=== PATIENT | female | born 1995 | race Caucasian/White ===

== ENCOUNTER 2018-11-19 23:54 | Inpatient (IN) | payer OTHER ==
[~2018-11-19] VITALS: Ht 160 cm; Wt 49.9 kg
[2018-11-19 23:58] VITALS: BP_SYST 126
--- NOTE | 2018-11-20 00:20 | NUR ---
Patient to ER bed 5 to gown for evaluation. Side rails up. Report given to SYD MADDOX.
--- NOTE | 2018-11-20 00:20 | NUR ---
Pt BIB friend s/p witnessed seizure while in passenger seat lasting approx. 2 minutes with a post ictal state lasting about 10 minutes. Pt presently AAOx4, no seizure activity, coherent speech in full sentences, no focal neurosensory or neuromuscular deficits noted. Pt also c/o H/A with neck pain ongoing for the past 2 days with a fever of 101 yesterday. +H/A, +Nausea, +photosensitivity. VSS, NAD. Addendum: 11/20/18 at 0610 by АЛЕКСАНДР Seizure pads placed to side rails.
--- NOTE | 2018-11-20 00:58 | NUR ---
Lab at bedside. Pt refuses blood draw. Dr. Mcmillan notified.
--- NOTE | 2018-11-20 01:02 | NUR ---
Dr. Mcmillan at bedside.
--- NOTE | 2018-11-20 01:25 | NUR ---
Pt moved to ER bed 08 for isolation r/t possible meningitis.
[2018-11-20] MEDS ORDERED: KETAMINE 30 MG/3 ML SYRINGE IVP ONE (01:30)
[2018-11-20] MEDS ORDERED: VANCOMYCIN HCL 1,000 MG in NS 250 ML IV ONE (01:30)
[2018-11-20] MEDS ORDERED: ACYCLOVIR IV 500 MG in D5W 100 ML IV ONE (01:30)
[2018-11-20] MEDS ORDERED: DIPHENHYDRAMINE INJ 50 MG/ML VIAL IVP ONE (01:30)
[2018-11-20] MEDS ORDERED: ONDANSETRON HCL 4 MG/2 ML VIAL IVP ONE (01:30)
--- NOTE | 2018-11-20 01:40 | NUR ---
# 22 gauge angiocath placed to LAC. Use of asceptic technique. Opsite placed over site. Blood return noted. Blood for lab drawn from site. Flushed with 10 cc of normal saline. No evidence of infiltration noted. Patient tolerated well.
--- NOTE | 2018-11-20 01:43 | NUR ---
Pt to CT via stretcher. Pt wearing face mask.
[2018-11-20] MEDS ORDERED: VANCOMYCIN HCL 1000 MG/VIAL IV ONE (01:50)
[2018-11-20] MEDS ORDERED: ACYCLOVIR SODIUM 50 MG/ML VIAL IV ONE (01:51)
[2018-11-20 01:53] LABS: BILIRUBIN,URINE NEGATIVE (NEGATIVE); BLOOD, URINE NEGATIVE (NEGATIVE); CLARITY/URINE CLEAR (CLEAR); COLOR,URINE YELLOW (YELLOW); GLUCOSE,URINE NEGATIVE (NEGATIVE); KETONES,URINE NEGATIVE (NEGATIVE); LEUKOCYTE ESTERASE ,URINE NEGATIVE (NEGATIVE); NITRITE, URINE NEGATIVE (NEGATIVE); PROTEIN URINE NEGATIVE (NEGATIVE); UROBILINOGEN,URINE 0.2 (0.2-1.0)
--- NOTE | 2018-11-20 01:55 | NUR ---
Pt returns from CT.
[2018-11-20 02:02] LABS: ANION GAP 12 (5-15); CALCIUM 9.7 mg/dL (8.4-11.0); CHLORIDE 102 mmol/L (98-107); CREATININE 0.76 mg/dL (0.55-1.30); GLUCOSE 91 mg/dL (70-99); POTASSIUM 4.1 mmol/L (3.5-5.1); SODIUM SERUM 134 mmol/L (136-145); UREA NITROGEN, BLOOD 12 mg/dL (8-21)
[2018-11-20 02:03] LABS: BARBITURATE, URINE NEGATIVE (NEG <=200); BENZODIAZEPINE, URINE NEGATIVE (NEG <=150); CANNABINOID, URINE POSITIVE (NEG <=50); COCAINE, URINE NEGATIVE (NEG <=150); METHAMPHETAMINES SCREEN,URINE NEGATIVE (NEG <=500); OPIATE, URINE NEGATIVE (NEG <=100); PHENCYCLIDINE SCREEN,URINE NEGATIVE (NEG <=25); UR TRICYCLIC ANTIDEPRESSANTS NEGATIVE (NEG <=300); URINE AMPHETAMINE POSITIVE (NEG <=500); URINE METHADONE NEGATIVE (NEG <=200); URINE OXYCODONE SCREEN NEGATIVE (NEG <=100); URINE PROPOXYPHENE SCREEN NEGATIVE (NEG <=300)
[2018-11-20 02:07] LABS: ALANINE AMINOTRANSFERASE 17 U/L (12-78); ALBUMIN 4.5 g/dL (3.4-4.8); ASPARTATE AMINOTRANSFERASE 18 U/L (10-37); TOTAL BILIRUBIN 0.5 mg/dL (0.0-1.0)
[2018-11-20 02:08] LABS: ALCOHOL, BLOOD < 3 mg/dL (<10); GFR AFRICAN AMERICAN 120 mL/min (>90)
[2018-11-20 02:09] LABS: BASOPHILS # (AUTO) 0.1 K/uL (0.0-0.2); BASOPHILS % (AUTO) 1.3 % (0.0-2.0); EOSINOPHILS # (AUTO) 0.3 K/uL (0.0-0.4); EOSINOPHILS % (AUTO) 5.3 % (0.0-4.0); HEMATOCRIT 35.7 % (36-48); HEMOGLOBIN 11.4 g/dL (12.0-16.0); LYMPHOCYTES # (AUTO) 1.7 K/uL (1.0-5.5); LYMPHOCYTES % (AUTO) 31.6 % (20.5-51.5); MEAN CORPUSCULAR HEMOGLOBIN 26 pg (27-31); MEAN CORPUSCULAR HGB CONC 32 % (32-36); MEAN CORPUSCULAR VOLUME 80 fL (79.0-98.0); MONOCYTES # (AUTO) 0.7 K/uL (0.0-1.0); MONOCYTES % (AUTO) 12.2 % (1.7-9.3); NEUTROPHILS # (AUTO) 2.7 K/uL (1.8-7.7); NEUTROPHILS % (AUTO) 49.6 % (40.0-70.0); PLATELET COUNT (AUTO) 342 K/uL (130-430); RED BLOOD CELL COUNT(AUTO) 4.44 MIL/uL (4.2-6.2); RED CELL DISTRIBUTION WIDTH 17.6 % (9.0-15.0); WHITE BLOOD COUNT (AUTO) 5.4 K/uL (4.8-10.8)
--- NOTE | 2018-11-20 02:10 | NUR ---
Dr. Mcmillan at bedside to discuss results and POC. Pt signs consent for Lumbar Puncture.
--- NOTE | 2018-11-20 02:29 | NUR ---
Pt AAOx4, c/o head and neck pain at 7/10. Pt placed on bedside surveillance monitor, crash cart in room. Ketamine 15 mg mixed in NS 50 mL now infusing at 100 mL/hr to patent PIV LAC.
[2018-11-20] MEDS ORDERED: MOXIFLOXACIN HCL 400 MG TABLET (AVELOX) PO SCH (02:45)
--- NOTE | 2018-11-20 02:45 | NUR ---
Pt resting quietly with even and non-labored respirations, easily awakened and coherent, drifts back to sleep. VSS, NAD.
--- NOTE | 2018-11-20 02:45 | NUR ---
Michelle miranda in ED - 11/20/18 at [email or web address] Dr[address] Mcmillan at bedside to discuss results and POC.
[2018-11-20] MEDS ORDERED: MIDAZOLAM HCL 5 MG/5 ML VIAL IVP ONE (03:00)
--- NOTE | 2018-11-20 03:00 | NUR ---
Michelle miranda in EDM - 11/20/18 at 0619 by [email or web address] Pt resting quietly with even and non-labored respirations, easily awakened and coherent, drifts back to sleep. VSS, NAD.
--- NOTE | 2018-11-20 03:00 | NUR ---
Pt resting quietly with even and non-labored respirations, easily awakened and coherent, drifts back to sleep. VSS, NAD.
--- NOTE | 2018-11-20 03:00 | NUR ---
Michelle miranda in [facility] - 11/20/18 at 0613 by [email or web address] Pt signs consent for Lumbar Puncture.
[2018-11-20] MEDS ORDERED: cefTRIAXone 2 GM VIAL ONE (03:15)
--- NOTE | 2018-11-20 03:15 | NUR ---
Pt continues to c/o H/A and neck pain at 12/15. Dr. Mcmillan made aware.
--- NOTE | 2018-11-20 03:30 | NUR ---
Ongoing cardiac monitoring, crash cart in room. RT, myself, Dr. Mcmillan present to bedside. Versed 2 mg diluted in 8 mL NS given SIVP to patent PIV Right Thumb. Addendum: 11/20/18 at 0346 by [email or web address] Pt placed on O2 at 2 LPM/NC. SPO2 100%.
--- NOTE | 2018-11-20 03:45 | NUR ---
Pt resting quietly with even and non-labored respirations, easily awakened and coherent, drifts back to sleep. VSS, NAD.
--- NOTE | 2018-11-20 04:00 | NUR ---
Pt resting quietly with even and non-labored respirations, easily awakened and coherent, drifts back to sleep. VSS, NAD.
--- NOTE | 2018-11-20 04:15 | NUR ---
Pt resting quietly with even and non-labored respirations, easily awakened and coherent, drifts back to sleep. VSS, NAD.
--- NOTE | 2018-11-20 04:30 | NUR ---
Pt resting quietly with even and non-labored respirations, easily awakened and coherent, drifts back to sleep. VSS, NAD.
--- NOTE | 2018-11-20 04:49 | NUR ---
Dr. Mcmillan at bedside to perform LP. Pt states I'm getting anxiety about it. Pt refuses procedure.
--- NOTE | 2018-11-20 04:50 | NUR ---
Pt c/o H/A and neck pain 11/15. Dr. Mcmillan notified.
[2018-11-20] MEDS ORDERED: MORPHINE 2 MG/ML INJ. SYRINGE IVP ONE (05:00)
--- NOTE | 2018-11-20 05:19 | NUR ---
Patient will be admitted to care of Saida Vazquez. Admitted to Med/Surg unit. Will go to room 102A. Belongings list completed. Summary report printed. Report given to VARSHA Bolanos.
[2018-11-20] MEDS ORDERED: ONDA4TAB5 PO ×2 (05:25→05:27)
[2018-11-20] MEDS ORDERED: PHE25 PO (05:27)
[2018-11-20] MEDS ORDERED: HYD10 PO (05:28)
--- NOTE | 2018-11-20 05:36 | NUR ---
Admission Note Received patient from ER with diagnosis of SEIZURE/POSSIBLE MENINGITIS. Initial Plan of Care discussed-patient verbalized understanding. Family at bedside. Oriented to room, call light, pain management and safety.
[2018-11-20 05:42] VITALS: BP_SYST 114
--- NOTE | 2018-11-20 06:14 | NUR ---
CONSULT CONSULT CALLED FOR DR. BUTTERFIELD I SPOKE WITH [employer] ANGELLA REASON FOR CONSULT: POSSIBLE MENINGITIS REQUESTING CONSULT: MICK Cintron EXCEL EXPERT PHONE NUMBER: [phone] Addendum: 11/20/18 at 0619 by Payton Alfonso [place]/ DR. ROLAND CELLOPHANE BAG MACHINE OPERATOR FOR DR. BUTTERFIELD
--- NOTE | 2018-11-20 06:17 | NUR ---
CONSULT CONSULT CALLED FOR DR. JENNIFER Deras I SPOKE WITH CHICA HYATT REASON FOR CONSULT: SEIZURES REQUESTING CONSULT: DR. MICK Cintron DIRECTOR GLOBAL STRATEGIC PUBLISHER SALES PHONE NUMBER: [phone]
--- NOTE | 2018-11-20 06:17 | NUR ---
CONSULTATION PAGED REASON FOR CONSULTATION:POSSIBLE MENINGITIS WAS CONSULT CALLED?Y PERSON WHO WAS NOTIFIED:CHRIS CONSULTING PHYSICIAN:EDWARDO HERNANDEZ ( SURVEY INTERVIEWER) FINANCIAL SYSTEMS DIRECTOR SPECIALTY:ID FINANCIAL SYSTEMS DIRECTOR PHONE NUMBER:[phone] ORDERING PHYSICIAN:RICK FALK
--- NOTE | 2018-11-20 06:34 | NUR ---
Patient resting in bed awake, alert, oriented x4. Breathing unlabored and even on room air. No signs of distress, no needs at this time. Fall, safety, droplet, seizure, aspiration precautions in place. Bed in lowest position, brake on, alarm on, call light within reach. Will continue to monitor.
--- NOTE | 2018-11-20 06:59 | NUR ---
CLOSING NOTE Patient resting in bed awake, alert, oriented x4. Breathing unlabored and even on room air. No signs of distress, no needs at this time. Fall, safety, droplet, seizure, aspiration precautions in place. Bed in lowest position, brake on, alarm on, call light within reach. Will endorse cares to day shift nurse.
--- NOTE | 2018-11-20 07:28 | NUR ---
A/OX4. COMPLAINS OF HEADACHE. ON ROOM AIR, NO SIGNS OF DISTRESS NOTED. POC IS EXPLAINED. SEIZURE PADS ARE ON. CALL LIGHT IS IN PLACE, AND SHE IS INSTRUCTED TO USE IT FOR NEEDS , BED LOCKED AT THE LOWEST POSITION, WILL CONTINUE TO MONITOR.
[2018-11-20] MEDS ORDERED: DIPHENHYDRAMINE INJ 50 MG/ML VIAL IVP PRN (08:30)
[2018-11-20] MEDS ORDERED: ACETAMINOPHEN 325 MG TABLET PO PRN (08:30)
[2018-11-20] MEDS ORDERED: HYDROcodone/ACETAMIN 10-325 MG TAB PO PRN (08:30)
[2018-11-20] MEDS ORDERED: HYDROcodone/ACETAMIN 5-325 MG TAB (NORCO/ VICODIN) PO PRN (08:30)
--- NOTE | 2018-11-20 08:50 | NUR ---
DR. BARTON IS CALLED ABOUT PATIENT'S RECURRENT BACK AND NECK PAIN. ORDERS WERE GIVEN.
--- NOTE | 2018-11-20 09:50 | NUR ---
PATIENT STATES THAT [facility] DON'T PROVIDE ADEQUATE PAIN RELIEF. DR. BARTON IS CALLED IN REGARDS TO THE MATTER TO CHANGE THE ORDERS.
[2018-11-20] MEDS: ONDANSETRON HCL 4 MG/2 ML VIAL IVP PRN ×4 (10:35→23:42)
[2018-11-20] MEDS: MORPHINE 4 MG/ML INJ. SYRINGE IVP PRN ×4 (10:36→23:42)
[2018-11-20 11:33] VITALS: BP_SYST 114
--- NOTE | 2018-11-20 12:00 | NUR ---
PATIENT IS RESTING AT THIS TIME. NO SIGNS OF DISTRESS NOTED.
--- NOTE | 2018-11-20 13:31 | NUR ---
patient is escorted to the bathroom. No signs of distress noted.
--- NOTE | 2018-11-20 14:30 | NUR ---
DR. WHEATLEY IS AT BEDSIDE TO ASSESS PATIENT.
[2018-11-20 15:29] VITALS: BP_SYST 134
[2018-11-20] MEDS: DIPHENHYDRAMINE INJ 50 MG/ML VIAL IVP PRN ×3 (15:48→23:42)
[2018-11-20] MEDS: NORMAL SALINE 5 ML DISP.SYRIN IVF SCH ×2 (16:00→23:43)
--- NOTE | 2018-11-20 17:00 | NUR ---
PATIENT IS AGREEABLE TO LUMBAR PUNCTURE ONLY IF SHE CAN BE UNDER ANESTHESIA. DR. RODRIGUEZ IS CALLED.
--- NOTE | 2018-11-20 18:00 | NUR ---
DR. RODRIGUEZ CALLS BACK. HE ORDERS LUMBAR PUNCTURE WITH ANESTHESIA.
--- NOTE | 2018-11-20 19:30 | NUR ---
ROUNDS PATIENT RESTING COMFORTABLY IN BED, NOT IN DISTRESS, VITALS STABLE. DENIES ANY PAIN AND DISCOMFORT AT THIS TIME. ASSESSMENT DONE AND DOCUMENTED. SEE FLOWSHEET. NEEDS ATTENDED TO. SAFETY, FALL AND SEIZURE PRECAUTION MEASURES IN PLACED. SIDE RAILS PADDED. BED IN LOW AND LOCKED POSITION. BED ALARM ON. CALL LIGHT PLACED WITHIN REACH.
--- NOTE | 2018-11-20 21:12 | NUR ---
MEDICATION DUE MEDICATIONS GIVEN SCHEDULED, TOLERATED WELL. WILL CONTINUE TO MONITOR.
[2018-11-20] MEDS: ACYCLOVIR IV 500 MG in D5W 100 ML IV SCH (22:28)
[2018-11-21 00:12] VITALS: BP_SYST 110
--- NOTE | 2018-11-21 00:14 | NUR ---
PATIENT RESTING: Patient resting quietly. No acute distress noted. Vital signs within normal range.
--- NOTE | 2018-11-21 02:00 | NUR ---
ROUNDS PATIENT RESTING: Patient resting quietly. No acute distress noted. Vital signs within normal range.
[2018-11-21] MEDS: DIPHENHYDRAMINE INJ 50 MG/ML VIAL IVP PRN ×4 (03:51→16:03)
[2018-11-21] MEDS: MORPHINE 4 MG/ML INJ. SYRINGE IVP PRN ×4 (03:52→20:07)
[2018-11-21] MEDS: ONDANSETRON HCL 4 MG/2 ML VIAL IVP PRN ×5 (03:52→20:07)
--- NOTE | 2018-11-21 04:25 | NUR ---
ROUNDS PATIENT ASLEEP, RESPIRATIONS EVEN AND UNLABORED, VITALS STABLE. WILL CONTINUE TO MONITOR.
[2018-11-21] MEDS: ACYCLOVIR IV 500 MG in D5W 100 ML IV SCH ×3 (05:16→23:18)
[2018-11-21] MEDS: NORMAL SALINE 5 ML DISP.SYRIN IVF SCH ×3 (05:19→23:18)
--- NOTE | 2018-11-21 06:48 | NUR ---
CLOSING NOTES PATIENT AWAKE, VITALS STABLE, NO COMPLAINTS AT THIS TIME. ALL NEEDS ATTENDED TO. SAFETY AND FALL PRECAUTION MEASURES MAINTAINED. CALL LIGHT PLACED WITHIN REACH.
[2018-11-21 06:51] LABS: BASOPHILS # (AUTO) 0.1 K/uL (0.0-0.2); BASOPHILS % (AUTO) 1.3 % (0.0-2.0); EOSINOPHILS # (AUTO) 0.4 K/uL (0.0-0.4); EOSINOPHILS % (AUTO) 8.5 % (0.0-4.0); HEMATOCRIT 34.7 % (36-48); LYMPHOCYTES # (AUTO) 1.7 K/uL (1.0-5.5); LYMPHOCYTES % (AUTO) 37.3 % (20.5-51.5); MEAN CORPUSCULAR HEMOGLOBIN 26 pg (27-31); MEAN CORPUSCULAR HGB CONC 32 % (32-36); MEAN CORPUSCULAR VOLUME 81 fL (79.0-98.0); MONOCYTES # (AUTO) 0.7 K/uL (0.0-1.0); MONOCYTES % (AUTO) 15.4 % (1.7-9.3); NEUTROPHILS # (AUTO) 1.7 K/uL (1.8-7.7); NEUTROPHILS % (AUTO) 37.5 % (40.0-70.0); PLATELET COUNT (AUTO) 282 K/uL (130-430); RED BLOOD CELL COUNT(AUTO) 4.29 MIL/uL (4.2-6.2); RED CELL DISTRIBUTION WIDTH 17.2 % (9.0-15.0); WHITE BLOOD COUNT (AUTO) 4.5 K/uL (4.8-10.8)
[2018-11-21 07:16] LABS: CALCIUM 8.9 mg/dL (8.4-11.0); POTASSIUM 3.7 mmol/L (3.5-5.1)
[2018-11-21 08:00] VITALS: BP_SYST 123
--- NOTE | 2018-11-21 08:00 | NUR ---
initial notes rec patient awake alert with ivl on the l ac intact. no infiltration noted. resp easy and unlabored.no sob noted. bed to the lowest position and side rails up and locked. call light within reached and knows when to call for assistance.
[2018-11-21 08:03] LABS: ERYTHROCYTE SEDIMENTATION RATE 5 MM/HR (0-20)
--- NOTE | 2018-11-21 10:00 | NUR ---
rounds due meds given as ordered. no sob noted.
[2018-11-21 10:45] VITALS: BP_SYST 111
--- NOTE | 2018-11-21 12:00 | NUR ---
rounds medicated as ordered for pain. call light within reached.
[2018-11-21] MEDS: MORPHINE 2 MG/ML INJ. SYRINGE IVP PRN (12:13)
--- NOTE | 2018-11-21 14:00 | NUR ---
rounds dr suman charles at bedside. call light iwhtn reached. no sob noted.
[2018-11-21 16:00] VITALS: BP_SYST 126
--- NOTE | 2018-11-21 16:00 | NUR ---
rounds medicated with pain med as ordered. ambulates at intervals at bedside. no sob noted.
--- NOTE | 2018-11-21 18:45 | NUR ---
closing notes resting comfortably, no sob noted. call light within reached.
--- NOTE | 2018-11-21 19:40 | NUR ---
ROUNDS PATIENT IN BED, WATCHING TV, VITALS STABLE, NO PAIN AND DISCOMFORT AT THIS TIME. ASSESSMENT DONE AND DOCUMENTED. SEE FLOWSHEET. NEEDS ATTENDED TO. SAFETY AND FALL PRECAUTION MEASURES IN PLACED. BED IN LOW AND LOCKED POSITION. BED ALARM ON. CALL LIGHT PLACED WITHIN REACH.
[2018-11-21 20:00] VITALS: BP_SYST 125
--- NOTE | 2018-11-21 21:11 | NUR ---
MEDICATION DUE MEDICATIONS GIVEN SCHEDULED, TOLERATED WELL. WILL CONTINUE TO MONITOR.
[2018-11-22] MEDS: DIPHENHYDRAMINE INJ 50 MG/ML VIAL IVP PRN ×6 (00:04→20:47)
[2018-11-22] MEDS: ONDANSETRON HCL 4 MG/2 ML VIAL IVP PRN ×6 (00:04→20:46)
[2018-11-22] MEDS: MORPHINE 4 MG/ML INJ. SYRINGE IVP PRN ×6 (00:05→20:53)
[2018-11-22 00:10] VITALS: BP_SYST 108
--- NOTE | 2018-11-22 00:10 | NUR ---
PAIN C/O OF PAIN, PAIN MEDICATION GIVEN ORDERED PRN. WILL CONTINUE TO MONITOR.
--- NOTE | 2018-11-22 02:13 | NUR ---
ROUNDS PATIENT SLEEPING, NO SIGNS OF SOB NOR PAIN AND DISCOMFORT NOTED. WILL CONTINUE TO MONITOR.
--- NOTE | 2018-11-22 04:05 | NUR ---
PAIN C/O GEN. PAIN, PAIN MEDICATION GIVEN ORDERED PRN. WILL CONTINUE TO MONITOR.
[2018-11-22] MEDS: ACYCLOVIR IV 500 MG in D5W 100 ML IV SCH ×3 (05:24→21:51)
[2018-11-22] MEDS: NORMAL SALINE 5 ML DISP.SYRIN IVF SCH ×3 (05:28→22:19)
--- NOTE | 2018-11-22 06:24 | NUR ---
CLOSING NOTES PATIENT AWAKE, VITALS STABLE, NO PAIN AT THIS TIME. ALL NEEDS ATTENDED TO. SAFETY MEASURES MAINTAINED. CALL LIGHT PLACED WITHIN REACH.
[2018-11-22 06:46] LABS: BASOPHILS % (AUTO) 1.1 % (0.0-2.0); EOSINOPHILS # (AUTO) 0.2 K/uL (0.0-0.4); EOSINOPHILS % (AUTO) 6.7 % (0.0-4.0); HEMATOCRIT 36.3 % (36-48); HEMOGLOBIN 12.1 g/dL (12.0-16.0); LYMPHOCYTES # (AUTO) 1.3 K/uL (1.0-5.5); LYMPHOCYTES % (AUTO) 35.4 % (20.5-51.5); MEAN CORPUSCULAR HEMOGLOBIN 27 pg (27-31); MEAN CORPUSCULAR HGB CONC 33 % (32-36); MEAN CORPUSCULAR VOLUME 81 fL (79.0-98.0); MONOCYTES # (AUTO) 0.5 K/uL (0.0-1.0); MONOCYTES % (AUTO) 13.8 % (1.7-9.3); NEUTROPHILS # (AUTO) 1.6 K/uL (1.8-7.7); PLATELET COUNT (AUTO) 274 K/uL (130-430); RED BLOOD CELL COUNT(AUTO) 4.49 MIL/uL (4.2-6.2); RED CELL DISTRIBUTION WIDTH 17.3 % (9.0-15.0); WHITE BLOOD COUNT (AUTO) 3.6 K/uL (4.8-10.8)
[2018-11-22 06:52] LABS: CALCIUM 8.9 mg/dL (8.4-11.0); CREATININE 1.05 mg/dL (0.55-1.30); POTASSIUM 3.9 mmol/L (3.5-5.1); TOTAL BILIRUBIN 0.2 mg/dL (0.0-1.0)
[2018-11-22 08:00] VITALS: BP_SYST 126
[2018-11-22 08:02] LABS: ERYTHROCYTE SEDIMENTATION RATE 8 MM/HR (0-20)
--- NOTE | 2018-11-22 08:05 | NUR ---
OPENING NOTE patient resting in bed A&O x4, patient denies any acute distress or pain at this time, breathing is even and unlabored on room air, educated patient on plan of care and call light system, will continue to monitor, safety precautions in place, seizure precautions in place, droplet precautions in place, call light within reach.
--- NOTE | 2018-11-22 10:05 | NUR ---
NOTES patient off the floor for MRI at this time.
--- NOTE | 2018-11-22 10:40 | NUR ---
NOTES patient back from MRI, now resting in bed, patient denies any acute distress or pain, breathing is even and unlabored on room air, will continue to monitor, safety precautions in place, call light within reach.
[2018-11-22 11:28] VITALS: BP_SYST 112
--- NOTE | 2018-11-22 12:35 | NUR ---
NOTES patient given medication for 7/10 pain in neck and upper abdomen, and zofran for nausea, no other acute distress or pain is noted, breathing is even and unlabored on room air, will continue to monitor, safety precautions in place, call light within reach.
--- NOTE | 2018-11-22 14:06 | NUR ---
GI consult called: for Dr. Ramos, regarding N/V, ordered by Dr. Vazquez, spoke with Kelley.
--- NOTE | 2018-11-22 14:45 | NUR ---
NOTES patient ambulated around floor at this time, patient denies any acute distress or pain, breathing is even and unlabored on room air, will continue to monitor, safety precautions in place.
[2018-11-22 15:30] VITALS: BP_SYST 113
--- NOTE | 2018-11-22 15:45 | NUR ---
Dietitian Recommendations * Recommend continuing regular diet * Encourage increase PO intakes LP, RD Please refer to Nutrition Assessment for details.
--- NOTE | 2018-11-22 16:50 | NUR ---
NOTES patient is resting in bed A&O x4, pain is controlled at this time, breathing even and unlabored on room air, will continue to monitor, safety precautions in place, seizure precautions in place, call light within reach.
--- NOTE | 2018-11-22 18:36 | NUR ---
CLOSING NOTE patient is resting in bed A&O x4, breathing is even and unlabored on room air, patient denies any acute distress, pain is controlled at this time, all needs were met throughout shift, will endorse report to oncoming nurse, safety precautions in place, seizure precautions in place, droplet precautions in place, call light within reach.
[2018-11-22 20:09] VITALS: BP_SYST 109
--- NOTE | 2018-11-22 20:09 | NUR ---
Opening notes Pt AAOx4, VSS, afebrile. No s/s distress noted. Pt c/o back neck pain 12/15, will medicate when pain med is due. IV L. AC 22G flushes well with NS, no s/s infiltration. Pt still has some N/V. Call light/items within easy reach. Seizure precaution in place. Will continue to monitor.
--- NOTE | 2018-11-22 20:53 | NUR ---
Pain med Pt c/o 12/15 back neck pain and N/V. Medicated pt with Zofran 4mg IVP, Benadryl IVP and Morphine 4mg IVP as needed L. AC 22G clear, patent. Call light within reach. Encouraged pt to call for assistance, pt verb understanding. To mena.
[2018-11-23 00:14] VITALS: BP_SYST 111
[2018-11-23] MEDS: ONDANSETRON HCL 4 MG/2 ML VIAL IVP PRN ×6 (00:53→21:10)
[2018-11-23] MEDS: DIPHENHYDRAMINE INJ 50 MG/ML VIAL IVP PRN ×6 (00:57→21:10)
[2018-11-23] MEDS: MORPHINE 4 MG/ML INJ. SYRINGE IVP PRN ×2 (00:57→04:48)
--- NOTE | 2018-11-23 01:00 | NUR ---
Pain med Pt alert, awake, c/o nausea and pain. Medicated with Zofran 4mg IVP, Morphine and Benadryl as needed for severe pain. Call light within reach. Bed low, locked siderails up x2, seizure padding on. To monitor.
--- NOTE | 2018-11-23 04:35 | NUR ---
IV Restart Pt alert, awake, c/o pain on L. AC IV site. Attempted to restart IV on right hand and R. forearm, unsuccessful. CLERICAL WAREHOUSE WORKER restarted R. wrist 22G good blood return and flushes well with NS. Pt tolerated well. To monitor.
--- NOTE | 2018-11-23 04:48 | NUR ---
Pain med/Nausea Pt c/o nausea and pain. Medicated with Zofran 4mg IVP and Morphine 4mg IVP as needed R. wrist 22G, good blood return and flushes well with NS. Call light within reach. Safety measures on. To monitor.
[2018-11-23] MEDS: ACYCLOVIR IV 500 MG in D5W 100 ML IV SCH ×3 (05:45→22:30)
[2018-11-23] MEDS: NORMAL SALINE 5 ML DISP.SYRIN IVF SCH ×3 (05:46→22:31)
--- NOTE | 2018-11-23 06:20 | NUR ---
Closing notes Pt awake on her iphone, no s/s distress noted. Pt states pain is better 6/10. IV antibiotic infusing as ordered R. wrist 22G good blood return. Call light/items within reach. Safety measures on. To endorse to AM shift.
[2018-11-23 07:01] LABS: EOSINOPHILS # (AUTO) 0.2 K/uL (0.0-0.4); EOSINOPHILS % (AUTO) 5.3 % (0.0-4.0); HEMOGLOBIN 11.1 g/dL (12.0-16.0); LYMPHOCYTES % (AUTO) 21.8 % (20.5-51.5); MEAN CORPUSCULAR HEMOGLOBIN 26 pg (27-31); MEAN CORPUSCULAR HGB CONC 32 % (32-36); MEAN CORPUSCULAR VOLUME 81 fL (79.0-98.0); MONOCYTES # (AUTO) 0.6 K/uL (0.0-1.0); MONOCYTES % (AUTO) 13.3 % (1.7-9.3); NEUTROPHILS # (AUTO) 2.8 K/uL (1.8-7.7); NEUTROPHILS % (AUTO) 58.6 % (40.0-70.0); PLATELET COUNT (AUTO) 237 K/uL (130-430); RED BLOOD CELL COUNT(AUTO) 4.35 MIL/uL (4.2-6.2); RED CELL DISTRIBUTION WIDTH 16.6 % (9.0-15.0); WHITE BLOOD COUNT (AUTO) 4.7 K/uL (4.8-10.8)
[2018-11-23 07:11] LABS: CREATININE 0.94 mg/dL (0.55-1.30); POTASSIUM 4.2 mmol/L (3.5-5.1)
[2018-11-23 08:19] LABS: C-REACTIVE PROTEIN QUANT 0.4 mg/dL (0-0.5)
[2018-11-23 08:40] LABS: ERYTHROCYTE SEDIMENTATION RATE 10 MM/HR (0-20)
[2018-11-23] MEDS: MORPHINE 2 MG/ML INJ. SYRINGE IVP PRN ×4 (09:16→21:12)
[2018-11-23 11:36] VITALS: BP_SYST 121
[2018-11-23] MEDS: METOCLOPRAMIDE HCL 10 MG/2 ML VIAL IVP SCH ×2 (13:10→17:13)
[2018-11-23 15:43] VITALS: BP_SYST 104
[2018-11-23 20:40] VITALS: BP_SYST 118
--- NOTE | 2018-11-23 20:40 | NUR ---
Opening notes Pt AAOx4, VSS, no s/s distress or discomfort. IV r. wrist 22G clear and patent. Call light within reach. Safety measures in place. To monitor.
--- NOTE | 2018-11-23 21:12 | NUR ---
Pain med Pt alert, awake, c/o 6/10 abd and neck pain. Medicated with Zofran and Morphine 2mg IVP as needed. Encouraged pt to call for assistance. Call light/items within reach. To monitor.
[2018-11-24] VITALS: BP_SYST 99
[2018-11-24] MEDS: DIPHENHYDRAMINE INJ 50 MG/ML VIAL IVP PRN ×5 (01:05→17:18)
[2018-11-24] MEDS: METOCLOPRAMIDE HCL 10 MG/2 ML VIAL IVP SCH ×3 (01:06→12:00)
[2018-11-24] MEDS: MORPHINE 4 MG/ML INJ. SYRINGE IVP PRN (01:06)
--- NOTE | 2018-11-24 03:20 | NUR ---
Rounds Pt awake, resting in bed, no s/s distress noted. Call light within reach. To monitor.
[2018-11-24] MEDS: MORPHINE 2 MG/ML INJ. SYRINGE IVP PRN ×4 (05:12→17:24)
--- NOTE | 2018-11-24 05:12 | NUR ---
Closing notes/Pain med Pt awake, c/o abd and neck pain and nausea. Medicated Reglan, Morphine, Benadryl. IV antiviral med administered as ordered R. wrist 22G no s/s infiltration. Call light within reach. Safety measures in place. To endorse to AM nurse.
[2018-11-24] MEDS: NORMAL SALINE 5 ML DISP.SYRIN IVF SCH ×2 (05:13→14:53)
[2018-11-24] MEDS: ACYCLOVIR IV 500 MG in D5W 100 ML IV SCH ×2 (05:24→14:53)
[2018-11-24 07:23] LABS: BASOPHILS % (AUTO) 1.5 % (0.0-2.0); EOSINOPHILS # (AUTO) 0.2 K/uL (0.0-0.4); EOSINOPHILS % (AUTO) 6.3 % (0.0-4.0); HEMATOCRIT 35.2 % (36-48); HEMOGLOBIN 11.4 g/dL (12.0-16.0); LYMPHOCYTES # (AUTO) 0.8 K/uL (1.0-5.5); LYMPHOCYTES % (AUTO) 27.6 % (20.5-51.5); MEAN CORPUSCULAR HEMOGLOBIN 26 pg (27-31); MEAN CORPUSCULAR HGB CONC 32 % (32-36); MEAN CORPUSCULAR VOLUME 80 fL (79.0-98.0); MONOCYTES # (AUTO) 0.5 K/uL (0.0-1.0); NEUTROPHILS # (AUTO) 1.4 K/uL (1.8-7.7); NEUTROPHILS % (AUTO) 47.6 % (40.0-70.0); PLATELET COUNT (AUTO) 205 K/uL (130-430); RED BLOOD CELL COUNT(AUTO) 4.39 MIL/uL (4.2-6.2); RED CELL DISTRIBUTION WIDTH 16.9 % (9.0-15.0)
[2018-11-24 07:59] LABS: CALCIUM 8.9 mg/dL (8.4-11.0); POTASSIUM 3.9 mmol/L (3.5-5.1)
[2018-11-24 08:00] LABS: ALBUMIN 3.8 g/dL (3.4-4.8); C-REACTIVE PROTEIN QUANT 0.4 mg/dL (0-0.5); CREATININE 1.04 mg/dL (0.55-1.30); TOTAL BILIRUBIN 0.3 mg/dL (0.0-1.0)
--- NOTE | 2018-11-24 08:00 | NUR ---
AM note patient resting in bed, a/ox4, states mild but tolerable pain level at this time, assessment complete, IV line is patent and infusing well, educated the patient on plan of care and call light system, she verbalized understanding, continuing to monitor the patient, bed in lowest position, two side rails up, call light within reach, fall, isolation and aspiration precautions in place.
[2018-11-24 08:13] LABS: ERYTHROCYTE SEDIMENTATION RATE 7 MM/HR (0-20)
[2018-11-24 09:10] LABS: WEST NILE VIRUS, IgG, SERUM Negative (Negative)
[2018-11-24] MEDS: ONDANSETRON HCL 4 MG/2 ML VIAL IVP PRN ×3 (09:29→17:18)
--- NOTE | 2018-11-24 09:34 | NUR ---
Medication patient resting in bed, awake, requesting for PRN medication, educated on PRN medications uses and potential side effects, she verbalized understanding, IV line is patent and infusing well at this time, also educated the patient on IV antibiotic and on pain management, she verbalized understanding, patient states, "Moody makes me feel really sick, so I don't like to take it," continuing to monitor the patient, bed in lowest position, two side rails up, call light within reach, fall, isolation and aspiration precautions in place.
[2018-11-24 10:08] VITALS: BP_SYST 125
--- NOTE | 2018-11-24 12:15 | NUR ---
RN rounds/medication patient resting in bed, awake, states mild but tolerable pain level at this time, educated on scheduled medication uses and potential side effects, she verbalized understanding, IV line had some leaking, medication administered will reassess IV line as needed, continuing to monitor, bed in lowest position, two side rails up, call light within reach, fall, isolation and aspiration precautions in place.
--- NOTE | 2018-11-24 12:45 | NUR ---
IV Re-insertion IV site leaking. Restarted on LEFT HAND 22G. Successful after 2 attempts. Will observe for any signs of infiltration.
--- NOTE | 2018-11-24 13:23 | NUR ---
Pain Medication patient resting in bed, awake, requesting for PRN medication, educated on PRN medications uses and potential side effects, she verbalized understanding, IV line is patent and infusing well at this time, continuing to monitor the patient, bed in lowest position, two side rails up, call light within reach, fall, isolation and aspiration precautions in place.
--- NOTE | 2018-11-24 14:53 | NUR ---
RN Rounds/Medication patient resting in bed, awake, denies pain, educated on IV medication uses and potential side effects, she verbalized understanding, IV line is patent and infusing well, patient requesting to walk around, visitor at bedside is there to assist her, provided patient with hospital non-slip socks, continuing to monitor, bed in lowest position, two side rails up, call light within reach, fall, aspiration and isolation precautions in place.
[2018-11-24 16:09] VITALS: BP_SYST 122
--- NOTE | 2018-11-24 16:11 | NUR ---
Spoke with Dr. Vazquez to clarify Discharge orders for today. Dr. Vazquez stated ok to discharge patient home, continue current home medications.
--- NOTE | 2018-11-24 16:12 | NUR ---
RN rounds informed patient of discharge home today, she verbalized understanding. Patient requesting for one more dose of PRN medication when due, informed her that medication can be given however she will need stay at least one hour post administration for re-assessment of vital signs, patient agreed. Patient is ambulating around the unit, steady gait, continuing to monitor.
[2018-11-24 18:12] VITALS: BP_SYST 122
== END 2018-11-24 18:25 | disposition home or self-care (01) | DRG 50 ==
LOC: SED 23:54 → SMU 11-20 04:01
PROVIDERS: ADMIT Preventive Medicine Preventive Medicine/Occupational Environmental Medicine; ATTEND Preventive Medicine Preventive Medicine/Occupational Environmental Medicine
DX: G03.9 Meningitis, unspecified (principal); E27.40 Unspecified adrenocortical insufficiency; G40.909 Epilepsy, unspecified, not intractable, without status epilepticus; E87.1 Hypo-osmolality and hyponatremia; D64.9 Anemia, unspecified; N28.9 Disorder of kidney and ureter, unspecified; F15.10 Other stimulant abuse, uncomplicated; F17.200 Nicotine dependence, unspecified, uncomplicated; F12.10 Cannabis abuse, uncomplicated; D72.819 Decreased white blood cell count, unspecified; Z88.0 Allergy status to penicillin; Z88.1 Allergy status to other antibiotic agents; Z88.8 Allergy status to other drugs, medicaments and biological substances; Z88.6 Allergy status to analgesic agent; Z88.9 Allergy status to unspecified drugs, medicaments and biological substances
CPT/HCPCS: 36415; 70450-TC; 70551; 80048; 80053; 80307; 81003; 83605; 85025; 85610-TC; 85651-TC; 85730-TC; 86140; 86694; 86788; 86789; 87040-TC; 87529; 95816; 96365; 96366; 96367; 96375; 99285; G0482; J0133; J0696; J1200; J2250; J2270; J2405; J2765; J3370; J7060

== ENCOUNTER 2020-01-02 21:00 | Emergency (ER) | payer OTHER, SELFPAY ==
[~2020-01-02] VITALS: Ht 160 cm; Wt 49.9 kg
[~2020-01-02 21:00] MED LIST: HYD10 PO; ONDA4TAB5 PO; PHE25 PO
[2020-01-02 21:15] VITALS: BP_SYST 149
--- NOTE | 2020-01-02 21:17 | NUR ---
FRANCISCO TO ASSUME CARE
--- NOTE | 2020-01-02 21:36 | NUR ---
DR FELIPE IN TO ASSESS
--- NOTE | 2020-01-02 21:45 | NUR ---
HERE TODAY FOR ABD PAIN/HEMATOEMESIS AND COUGH. SYMPTOMS BEGAN YESTERDAY. UPON ARRIVAL HOLDING BAG WITH BLOOD TINGED EMESIS. FREQUENT COUGHING. STATES SHE WAS HAVING GUESTS OVER WHO HAVE HAD BEEN EXPOSED TO COVID 19 COMMUNIC[employer]ES CLEARLY IN FULL COMPLETE SENTENCES, RESP UNLABORED, SKIN WARM AND DRY
[2020-01-02] MEDS: ONDANSETRON HCL 4 MG/2 ML VIAL IVP ONE (22:15)
[2020-01-02] MEDS: DIPHENHYDRAMINE INJ 50 MG/ML VIAL IVP ONE (22:15)
[2020-01-02] MEDS: PANTOPRAZOLE SODIUM 40 MG/VIAL (PROTONIX) IVP ONE (22:15)
[2020-01-02] MEDS: MORPHINE 2 MG/ML INJ. SYRINGE IVP ONE (22:16)
[2020-01-02] MEDS: NACL 0.9% 1,000 ML IV ONE (22:20)
[2020-01-02 22:22] LABS: BASOPHILS % (AUTO) 0.9 % (0.0-2.0); EOSINOPHILS # (AUTO) 0.1 K/uL (0.0-0.4); EOSINOPHILS % (AUTO) 1.5 % (0.0-4.0); HEMATOCRIT 38.2 % (36-48); HEMOGLOBIN 12.6 g/dL (12.0-16.0); LYMPHOCYTES # (AUTO) 1.5 K/uL (1.0-5.5); LYMPHOCYTES % (AUTO) 27.7 % (20.5-51.5); MEAN CORPUSCULAR HEMOGLOBIN 30 pg (27-31); MEAN CORPUSCULAR HGB CONC 33 % (32-36); MEAN CORPUSCULAR VOLUME 90 fL (79.0-98.0); MONOCYTES # (AUTO) 0.5 K/uL (0.0-1.0); MONOCYTES % (AUTO) 9.1 % (1.7-9.3); NEUTROPHILS # (AUTO) 3.2 K/uL (1.8-7.7); NEUTROPHILS % (AUTO) 60.8 % (40.0-70.0); PLATELET COUNT (AUTO) 219 K/uL (130-430); RED BLOOD CELL COUNT(AUTO) 4.25 MIL/uL (4.2-6.2); RED CELL DISTRIBUTION WIDTH 14.7 % (9.0-15.0); WHITE BLOOD COUNT (AUTO) 5.2 K/uL (4.8-10.8)
[2020-01-02 22:27] LABS: INR 1.1 (0.8-1.2); PROTHROMBIN TIME 11.2 SECS (9.5-12.5)
[2020-01-02 22:30] LABS: ALBUMIN 4.2 g/dL (3.4-4.8); CALCIUM 9.4 mg/dL (8.4-11.0); CREATININE 0.78 mg/dL (0.55-1.30); POTASSIUM 3.4 mmol/L (3.5-5.1); TOTAL BILIRUBIN 0.5 mg/dL (0.0-1.0)
--- NOTE | 2020-01-02 22:30 | NUR ---
UP TO BSC, NO DISCOMFORT, URINE PREG NEG
[2020-01-02 22:58] LABS: BILIRUBIN,URINE 1+ (NEGATIVE); BLOOD, URINE NEGATIVE (NEGATIVE); CLARITY/URINE CLEAR (CLEAR); COLOR,URINE YELLOW (YELLOW); GLUCOSE,URINE NEGATIVE (NEGATIVE); KETONES,URINE 1+ (NEGATIVE); LEUKOCYTE ESTERASE ,URINE NEGATIVE (NEGATIVE); NITRITE, URINE NEGATIVE (NEGATIVE); PH,URINE 5.5 (5.0-8.0); PROTEIN URINE TRACE (NEGATIVE); UROBILINOGEN,URINE 0.2 (0.2-1.0)
[2020-01-02 23:10] LABS: BACTERIA,URINE RARE /HPF (None Seen); RBC,URINE 0-3 /HPF (0-3); WBC,URINE 0-3 /HPF (0-3)
--- NOTE | 2020-01-02 23:14 | NUR ---
NO CHANGE IN MENTATION, VSS, CALM, ALERT, RESP UNLABORED, SKIN WARM AND DRY. CONTINUES TO HAVE LESS FREQUENT EPISODE OF VOMITING
[2020-01-02 23:21] LABS: BARBITURATE, URINE NEGATIVE (NEG <=200); CANNABINOID, URINE POSITIVE (NEG <=50); METHAMPHETAMINES SCREEN,URINE NEGATIVE (NEG <=500); OPIATE, URINE POSITIVE (NEG <=100); URINE AMPHETAMINE NEGATIVE (NEG <=500); URINE METHADONE NEGATIVE (NEG <=200)
[2020-01-02 23:22] LABS: BENZODIAZEPINE, URINE NEGATIVE (NEG <=150); COCAINE, URINE NEGATIVE (NEG <=150); PHENCYCLIDINE SCREEN,URINE NEGATIVE (NEG <=25); UR TRICYCLIC ANTIDEPRESSANTS NEGATIVE (NEG <=300); URINE OXYCODONE SCREEN NEGATIVE (NEG <=100); URINE PROPOXYPHENE SCREEN NEGATIVE (NEG <=300)
--- NOTE | 2020-01-03 00:12 | NUR ---
Patient resting quietly. No acute distress noted. Vital signs within normal range.
[2020-01-03] MEDS ORDERED: PROMETHAZINE INJ.Non-Formulary 25 MG/ML AMP IVP ONE (00:30)
--- NOTE | 2020-01-03 01:16 | NUR ---
medicated per md orders. patient tolerated well.
[2020-01-03] MEDS: FAMOTIDINE PF 20 MG/2 ML VIAL IVP ONE (01:26)
[2020-01-03] MEDS: DIPHENHYDRAMINE INJ 50 MG/ML VIAL IVP ONE (01:27)
[2020-01-03] MEDS: MORPHINE 2 MG/ML INJ. SYRINGE IVP ONE (01:28)
[2020-01-03] MEDS: PROCHLORPERAZINE EDISYLATE 10 MG/2 ML VIAL IVP ONE (01:29)
[2020-01-03 01:47] VITALS: BP_SYST 118
--- NOTE | 2020-01-03 01:47 | NUR ---
Patient given written and verbal discharge instructions and verbalizes understanding. ER MD discussed with patient the results and treatment provided. Patient in stable condition. ID arm band removed. IV catheter removed intact and dressing applied, no active bleeding. Rx of protonix given. Patient educated on pain management and to follow up with PMD. Pain Scale 0/10 Opportunity for questions provided and answered. Medication side effect fact sheet provided.
== END 2020-01-03 01:47 | disposition home or self-care (01) ==
LOC: SED 21:00
DX: R11.15 Cyclical vomiting syndrome unrelated to migraine (principal); F12.90 Cannabis use, unspecified, uncomplicated; Z88.0 Allergy status to penicillin; Z88.1 Allergy status to other antibiotic agents; Z88.5 Allergy status to narcotic agent; Z88.6 Allergy status to analgesic agent; Z79.899 Other long term (current) drug therapy; Z20.828 Contact with and (suspected) exposure to other viral communicable diseases
CPT/HCPCS: 36415; 71045; 80053; 80307; 81000; 83690; 85025; 85610; 85730; 96365; 96375 ×2; 96376; 99284; C9113; C9803; J0780; J1200 ×2; J2270 ×2; J2405; J2550; J3490; J7030; U0003